=== PATIENT | male | born 1960 | race Caucasian/White ===

== ENCOUNTER → 2017-12-02 | Outpatient (REF) ==
[~2017-12-02] MED LIST: ACE3 PO; ALP25 PO; ATOR20TA22 PO; ATR80PT PO; BUPR-163 PO; BUPR300T55 PO; KET10 PO; LANS15CA38 PO; MECL12.5 PO; NAPR-1043 PO; RAN150 PO; TUM500 PO; [UNRECOGNIZED DRUG - CODE] PO
--- NOTE | 2017-12-02 10:18 | RADIOLOGY IMAGING REPORT ---
FACILITY: [facility] - [place] PATIENT NAME: Calin Perry : 1960 MR: [id number] V: [id number] EXAM DATE: ORDERING PHYSICIAN: SHAWN ANGEL TECHNOLOGIST: Location: [facility] [place] Patient: Calin Perry : 1960 Visit/Account:[id number] Date of Sevice: 12/02/2017 PA chest, one view. HISTORY: Employment physical. COMPARISON: 06/20/2016. The heart and mediastinum are unremarkable. Pulmonary vessels are unremarkable. The lungs are clear . The pleural surfaces are unremarkable. No pneumothorax. The bones are unremarkable. IMPRESSION: No evidence of acute cardiopulmonary disease. Report Dictated By: Ramirez Mcconnell MD at 12/02/2017 10:13 AM Report E-Signed By: Ramirez Mcconnell MD at 12/02/2017 10:14 AM WSN:[id number]
== END ==
LOC: RAD 09:29
PROVIDERS: ATTEND Physician Assistant Medical
DX: Z02.89 Encounter for other administrative examinations (principal)
CPT/HCPCS: 71045